=== PATIENT | male | born 1980 | race African-American/Black ===

== ENCOUNTER 2017-06-23 19:19 | Emergency (ER) | payer SELFPAY ==
[2017-06-23 19:25] VITALS: BP 138/90; PULSE 69; RESP 16; TEMP 97.9; O2SAT 98
[2017-06-23] MEDS ORDERED: ONDANSETRON ODT 4 MG TAB PO ONE (19:30)
[2017-06-23 19:50] LABS: AUTOMATED NEUTROPHIL # 6.4 TH/MM3 (1.8-7.7); BASOPHIL % 0.5 % (0.0-2.0); EOSINOPHIL # 0.2 TH/MM3 (0-0.4); HEMATOCRIT 48.7 % (39.0-51.0); HEMOGLOBIN 16.7 GM/DL (13.0-17.0); LYMPHOCYTE # 1.7 TH/MM3 (1.0-4.8); MEAN CELL VOLUME 84.3 FL (80.0-100.0); MEAN CORPUSCULAR HEMOGLOBIN 28.9 PG (27.0-34.0); MEAN CORPUSCULAR HGB CONC 34.3 % (32.0-36.0); MEAN PLATELET VOLUME 8.8 FL (7.0-11.0); MONOCYTE # 0.6 TH/MM3 (0-0.9); NEUT % 71.5 % (16.0-70.0); PLATELET COUNT 221 TH/MM3 (150-450); RED BLOOD COUNT 5.78 MIL/MM3 (4.50-5.90)
--- NOTE | 2017-06-23 20:05 | RADRPT ---
EXAM DATE/TIME: 06/23/2017 19:44 [facility] COMPARISON: No previous studies available for comparison. INDICATIONS : Short of breath, cough. MEDICAL HISTORY : None. SURGICAL HISTORY : None. ENCOUNTER: Initial ACUITY: 1 day PAIN SCORE: 0/10 LOCATION: Bilateral chest FINDINGS: PA and lateral views of the chest demonstrate the lungs to be symmetrically aerated without evidence of mass, infiltrate or effusion. The cardiomediastinal contours are unremarkable. Osseous structure s are intact. CONCLUSION: No acute disease. Mild scoliosis. Hai Tan MD on June 23, 2017 at 20:01 Board Certified Radiologist. This report was verified electronically.
[2017-06-23 20:11] LABS: BICARBONATE 25.4 MEQ/L (21.0-32.0); CALCIUM 10.1 MG/DL (8.5-10.1); CREATININE 1.51 MG/DL (0.60-1.30)
[2017-06-23 20:19] LABS: ALBUMIN 4.7 GM/DL (3.4-5.0); DIRECT BILIRUBIN ADULT 0.1 MG/DL (0.0-0.2)
[2017-06-23 20:21] LABS: INDIRECT BILIRUBIN 0.5 MG/DL (0.0-0.8); TOTAL BILIRUBIN ADULT 0.6 MG/DL (0.2-1.0); TOTAL PROTEIN 8.9 GM/DL (6.4-8.2)
[2017-06-23] MEDS ORDERED: ONDANSETRON HCL 4 MG/2 ML VIAL IV PUSH ONE (20:30)
[2017-06-23] MEDS ORDERED: SODIUM CHLOR 0.9% 1000 ML INJ 1,000 ML IV ONE (20:30)
--- NOTE | 2017-06-23 20:41 | PD ---
HPI Chief Complaint: Cold / Flu Symptoms Time Seen by Provider: 20:08 Travel History International Travel<30 days: No Contact w/Intl Traveler<30days: No Traveled to known affect area: No History of Present Illness HPI 36-year-old male here for evaluation of nausea, vomiting, diarrhea, fever, chills, generalized malaise. Symptoms started today. Upon my assessment the patient has a blanket pulled over his head and he is writhing in discomfort. He is in no respiratory distress. He states his emesis and bowel movements are clear/watery. Cough is nonproductive. Reports that he smokes cigarettes but denies alcohol or illicit drug use. [facility] Past Medical History Immunizations Current: Yes Past Surgical History Appendectomy: Yes Social History Alcohol Use: No Tobacco Use: Yes Substance Use: No Allergies-Medications (Allergen,Severity, Reaction): Coded Allergies: No Known Allergies (Unverified , 06/23/17) Reported Meds & Prescriptions Reported Meds & Active Scripts Active No Active Prescriptions or Reported Medications Review of Systems Except as stated in HPI: all other systems reviewed are Neg Physical Exam Narrative GENERAL: Well-developed, well-nourished, no apparent distress. SKIN: Focused skin assessment warm/dry. HEAD: Atraumatic. Normocephalic. EYES: Pupils equal and round. No scleral icterus. No injection or drainage. ENT: Mucous membranes pink and moist. NECK: Trachea midline. No JVD. CARDIOVASCULAR: Regular rate and rhythm. No murmur appreciated. RESPIRATORY: No accessory muscle use. Clear to auscultation. Breath sounds equal bilaterally. GASTROINTESTINAL: Abdomen soft, non-tender, nondistended. MUSCULOSKELETAL: No obvious deformities. No clubbing. No cyanosis. No edema. NEUROLOGICAL: Awake and alert. No obvious cranial nerve deficits. Motor grossly within normal limits. Normal speech. PSYCHIATRIC: Appropriate mood and affect; insight and judgment normal. Data Data Last Documented VS Vital Signs Date Time Temp Pulse Resp B/P (MAP) Pulse Ox O2 Delivery O2 Flow Rate FiO2 06/23/17 20:31 Room Air 06/23/17 19:25 97.9 69 16 138/90 (106) 98 Orders Orders Complete Blood Count With Diff (06/23/17 19:26) Basic Metabolic Panel (Bmp) (06/23/17 19:26) Influenzae A/B Antigen (06/23/17 19:26) Electrocardiogram (06/23/17 ) Chest, Pa & Lat (06/23/17 ) Ondansetron Odt (Zofran Odt) (06/23/17 19:30) Hepatic Functional Panel (06/23/17 19:54) Lipase (06/23/17 19:54) Sodium Chlor 0.9% 1000 Ml Inj (Ns 1000 M (06/23/17 20:30) Ondansetron Inj (Zofran Inj) (06/23/17 20:30) Group A Rapid Strep Screen (06/23/17 20:37) Ct Abd/Pel W Iv Contrast(Rout) (06/23/17 20:53) Iohexol 350 Inj (Omnipaque 350 Inj) (06/23/17 21:07) Metoclopramide Inj (Reglan Inj) (06/23/17 21:30) Strep Culture (Group A) (06/23/17 20:55) Labs Laboratory Tests Test 06/23/17 19:33 White Blood Count 9.0 TH/MM3 Red Blood Count 5.78 MIL/MM3 Hemoglobin 16.7 GM/DL Hematocrit 48.7 % Mean Corpuscular Volume 84.3 FL Mean Corpuscular Hemoglobin 28.9 PG Mean Corpuscular Hemoglobin Concent 34.3 % Red Cell Distribution Width 14.0 % Platelet Count 221 TH/MM3 Mean Platelet Volume 8.8 FL Neutrophils (%) (Auto) 71.5 % Lymphocytes (%) (Auto) 19.0 % Monocytes (%) (Auto) 7.0 % Eosinophils (%) (Auto) 2.0 % Basophils (%) (Auto) 0.5 % Neutrophils # (Auto) 6.4 TH/MM3 Lymphocytes # (Auto) 1.7 TH/MM3 Monocytes # (Auto) 0.6 TH/MM3 Eosinophils # (Auto) 0.2 TH/MM3 Basophils # (Auto) 0.0 TH/MM3 CBC Comment DIFF FINAL Differential Comment Blood Urea Nitrogen 11 MG/DL Creatinine 1.51 MG/DL Random Glucose 104 MG/DL Calcium Level 10.1 MG/DL Sodium Level 137 MEQ/L Potassium Level 3.6 MEQ/L Chloride Level 104 MEQ/L Carbon Dioxide Level 25.4 MEQ/L Anion Gap 8 MEQ/L Estimat Glomerular Filtration Rate 52 ML/MIN Total Bilirubin 0.6 MG/DL Direct Bilirubin 0.1 MG/DL Indirect Bilirubin 0.5 MG/DL Aspartate Amino Transf (AST/SGOT) 20 U/L Alanine Aminotransferase (ALT/SGPT) 22 U/L Alkaline Phosphatase 120 U/L Total Protein 8.9 GM/DL Albumin 4.7 GM/DL Lipase 137 U/L [facility] Medical Decision Making Medical Screen Exam Complete: Yes Emergency Medical Condition: Yes Differential Diagnosis Influenza, viral illness, URI, dehydration, gastroenteritis, acute surgical/ intra-abdominal process unlikely Narrative Course Vital signs are within normal limits. CBC is unremarkable. CMP is remarkable for creatinine 1.51, GFR 52, otherwise unremarkable. Lipase is 137. CT abdomen pelvis: No acute findings. Small hiatal hernia. Previous appendectomy. Influenza is negative. While at CT the patient had an episode of vomiting. Upon return from CT the patient reports that he felt significantly improved. He was made aware of all findings. His abdominal exam is benign without any peritoneal signs. States he is feeling much better and would like to go home. He likely has an acute gastroenteritis that is stable for discharge home with outpatient follow-up with a primary care physician this week. He was advised to stay hydrated with plenty of fluids. I'll give him a prescription for Zofran. He was informed on when to return to the emergency department. He verbalizes understanding and agreement with plan. Diagnosis Primary Impression: Acute gastroenteritis Referrals: Primary Care Physician 3 days Additional Instructions: Follow-up with a primary care physician this week. Stay hydrated with plenty of fluids. Return to the emergency department for worsening symptoms or any other concerns. Scripts Ondansetron Odt (Zofran Odt) 4 Mg Tab 4 MG SL Q8HR Y for Nausea/Vomiting, #15 TAB 0 Refills Prov: Jey Hall MD 06/23/17 Disposition: DISCHARGE HOME Condition: Stable Jey Hall MD Jun 23, 2017 20:41
[2017-06-23] MEDS ORDERED: IOHEXOL 350 MG/ML 10 ML VIAL (for RAD DIAG) IVCONTRAST ONE (21:07)
[2017-06-23] MEDS ORDERED: METOCLOPRAMIDE HCL 10 MG/2 ML VIAL IV PUSH ONE (21:30)
--- NOTE | 2017-06-23 21:35 | RADRPT ---
EXAM DATE/TIME: 06/23/2017 21:05 [facility] COMPARISON: No previous studies available for comparison. INDICATIONS : Nausea,vomitting, diarrhea. IV CONTRAST: 96 cc Omnipaque 350 (iohexol) IV ORAL CONTRAST: No oral contrast ingested. RADIATION DOSE: 9.85 CTDIvol (mGy) MEDICAL HISTORY : None SURGICAL HISTORY : Appendectomy. ENCOUNTER: Initial ACUITY: 1 day PAIN SCALE: 5/10 LOCATION: abdomen TECHNIQUE: Volumetric scanning of the abdomen and pelvis was performed. Using automated exposure control and ad justment of the mA and/or kV according to patient size, radiation dose was kept as low as reasonably achievable to obtain optimal diagnostic quality images. DICOM format image data is available electro nically for review and comparison. FINDINGS: Lung bases are clear. Small hiatal hernia. No acute findings in the liver, spleen, adrenals, kidneys or pancreas. No calcified gallstones or biliary ductal dilatation. No free fluid. No bowel obstruction. No adenopathy. No acute bony abnormality. CONCLUSION: 1. No acute findings. Small hiatal hernia. Previous appendectomy. Hai Tan MD on June 23, 2017 at 21:28 Board Certified Radiologist. This report was verified electronically.
[2017-06-23] MEDS ORDERED: ZOFR4TAB3 SL (21:42)
--- NOTE | 2017-06-24 21:39 | EKG ---
Date Performed: 06/23/2017 Time Performed: 19:50:19 PTAGE: 36 years EKG: Sinus rhythm NORMAL ECG NO PREVIOUS TRACING DOCTOR: Jamir Montes Interpretating Date/Time 06/24/2017 21:39:09
== END 2017-06-23 22:12 | disposition home or self-care (01) ==
LOC: NEPD 19:19
DX: K52.9 Noninfective gastroenteritis and colitis, unspecified (principal); R05 Cough; R53.81 Other malaise; R50.9 Fever, unspecified; Z72.0 Tobacco use
CPT/HCPCS: 71046; 74177; 80048; 80076; 83690; 85025; 87081; 87804; 87880; 93005; 96361; 96374; 96375; 99285; J2405; J2765; J7030; Q9967